=== PATIENT | male | born 1980 | race African-American/Black ===

== ENCOUNTER 2019-03-23 23:26 | Emergency (ER) | payer MEDICARE ==
[~2019-03-23] VITALS: Ht 177.8 cm; Wt 101.0 kg
[2019-03-23] MEDS ORDERED: WARF1 PO (23:52)
[2019-03-23] MEDS ORDERED: PREG50 PO (23:52)
[2019-03-23] MEDS ORDERED: HYDR-4455 PO (23:52)
[2019-03-24] MEDS ORDERED: HYDROmorphone 2 MG/ML SYRINGE IVP ONE
[2019-03-24 01:07] LABS: EOSINOPHILS % (AUTO) 2.7 % (1.0-6.0); HEMOGLOBIN 12.3 g/dL (13.5-17.5); LYMPHOCYTES # (AUTO) 3.7 K/uL (1.0-4.8); MEAN CORPUSCULAR HEMOGLOBIN 34.5 pg (26.0-34.0); MEAN CORPUSCULAR HGB CONC 34.1 G/dL (31.0-37.0); MEAN CORPUSCULAR VOLUME 101 fL (80-100); MONOCYTES # (AUTO) 1.3 K/uL (0.1-1.0); MONOCYTES % (AUTO) 12.1 % (2.0-9.0); NEUTROPHILS # (AUTO) 5.5 K/uL (1.8-7.7); NEUTROPHILS % (AUTO) 50.2 % (40.0-70.0); PLATELET COUNT (AUTO) 282 K/uL (150-450); RED BLOOD CELL COUNT(AUTO) 3.56 MIL/uL (4.50-5.90); RED CELL DISTRIBUTION WIDTH 17.6 % (11.5-14.5)
[2019-03-24 01:19] LABS: ANION GAP 9 mmol/L (8-16); CALCIUM, TOTAL 8.8 mg/dL (8.8-10.5); CARBON DIOXIDE 27 mmol/L (22-29); CHLORIDE 106 mmol/L (98-107); CREATININE 1.34 mg/dL (0.60-1.30); GLOMERULAR FILTR. RATE CALC > 60 mL/min (>60); GLUCOSE,RANDOM 88 mg/dL (70-110); POTASSIUM 3.8 mmol/L (3.5-5.1); SODIUM SERUM 142 mmol/L (136-145); UREA NITROGEN, BLOOD 15 mg/dL (7-18)
[2019-03-24 01:23] LABS: INR 1.8 (0.9-1.1)
[2019-03-24 01:25] LABS: ALANINE AMINOTRANSFERASE 16 U/L (12-78); ALBUMIN 3.4 g/dL (3.4-5.0); ALKALINE PHOSPHATASE 90 U/L (46-116); ASPARTATE AMINOTRANSFERASE 17 U/L (15-37); BILIRUBIN,TOTAL 0.4 mg/dL (0.1-1.0); TOTAL PROTEIN, SERUM 6.6 g/dL (6.4-8.2)
[2019-03-24 02:19] LABS: CREATINE KINASE, TOTAL ONLY 184 U/L (39-308)
[2019-03-24] MEDS ORDERED: IOVERSOL 350 MG/ML 100 ML VIAL ONE (02:56)
[2019-03-24] MEDS ORDERED: SODIUM CHLORIDE 0.9% 100 ML ONE (02:57)
[2019-03-24 04:48] VITALS: BP 130/78
== END 2019-03-24 04:49 | disposition home or self-care (01) ==
LOC: EMS 23:31
DX: M25.571 Pain in right ankle and joints of right foot (principal); D57.00 Hb-SS disease with crisis, unspecified; Z79.01 Long term (current) use of anticoagulants
CPT/HCPCS: 36415; 71275; 73610; 80053; 82550; 83735; 84484; 85025; 85045; 85610; 93005; 93970; 96374; 99284; J1170; J7050; Q9967